=== PATIENT | female | born 1955 | race Caucasian/White ===

== ENCOUNTER 2017-09-07 20:17 | Emergency (ER) | payer BC ==
[~2017-09-07] VITALS: Ht 167.6 cm; Wt 110.0 kg
[~2017-09-07 20:17] MED LIST: NEORAL100 MG OR; NORCO1 TAB PO; TOPAMAX100 MG PO; TYLENOL 325MG TAB PO; XARELTO PO
[2017-09-07 22:08] LABS: HEMATOCRIT 36.9 % (37.0-47.0); HEMOGLOBIN 11.5 g/dl (12.0-16.0); IMMATURE GRANULOCYTES 0.7 % (0.0-1.0); MEAN CELL VOLUME 92.5 fL CALC (80.0-100.0); MEAN CORPUSCULAR HGB 28.8 pG CALC (26.0-32.0); MEAN CORPUSCULAR HGB CONC 31.2 g/L CALC (32.0-36.0); NEUT# 12.78 thou/uL (2.00-7.15); RED BLOOD COUNT 3.99 mill/uL (4.20-5.60); RED CELL DISTRI WIDTH 13.9 % (11.5-15.5)
[2017-09-07 22:24] LABS: ALBUMIN 3.7 g/dL (3.2-5.0); ALKALINE PHOSPHATASE 81 u/l (38-126); ANION GAP 16 (6-22 (CALC)); BILIRUBIN, TOTAL 0.7 mg/dL (0.0-1.4); BUN 21 mg/dL (8-23); BUN/CREATININE RATIO 18 (12-20 (CALC)); CALCIUM 8.9 mg/dL (8.4-10.2); CARBON DIOXIDE 23 mmol/l (22-30); CHLORIDE 107 mmol/l (95-108); CREATININE 1.2 mg/dL (0.5-1.0); GFR 46 ML/MIN (>=60 (CALC)); GFR FOR AFR.AMER. 55 ML/MIN (>=60 (CALC)); GLUCOSE 121 mg/dL (82-115); POTASSIUM 3.6 mmol/l (3.5-5.1); SGOT/AST 39 u/l (9-36); SGPT/ALT 24 u/l (11-66); SODIUM 142 mmol/l (137-146)
[2017-09-07 22:26] VITALS: BP 95/64
== END 2017-09-07 22:23 | DRG 534 ==
LOC: ED 20:17
PROVIDERS: Emergency Medicine
DX: S72.401A Unspecified fracture of lower end of right femur, initial encounter for closed fracture (principal); I10 Essential (primary) hypertension; M19.90 Unspecified osteoarthritis, unspecified site; Y92.009 Unspecified place in unspecified non-institutional (private) residence as the place of occurrence of the external cause; W18.30XA Fall on same level, unspecified, initial encounter; Z96.653 Presence of artificial knee joint, bilateral; Z96.643 Presence of artificial hip joint, bilateral
CPT/HCPCS: L1830

== ENCOUNTER 2019-11-15 05:29 | Emergency (ER) | payer BC ==
[~2019-11-15] VITALS: Ht 167.6 cm; Wt 108.6 kg
[2019-11-15 06:05] LABS: HEMATOCRIT 41.9 % (37.0-47.0); IMMATURE GRANULOCYTES 0.3 % (0.0-5.0); MEAN CELL VOLUME 94.4 fL CALC (80.0-100.0); MEAN CORPUSCULAR HGB 31.1 pG CALC (26.0-32.0); MEAN CORPUSCULAR HGB CONC 32.9 g/L CALC (32.0-36.0); NEUT# 8.94 thou/uL (2.00-7.15); RED BLOOD COUNT 4.44 mill/uL (4.20-5.60); RED CELL DISTRI WIDTH 13.1 % (11.5-15.5)
[2019-11-15] MEDS ORDERED: TOPAMAX50 MG PO (06:07)
[2019-11-15] MEDS ORDERED: PREDNISONE5 MG PO (06:08)
[2019-11-15] MEDS ORDERED: FAMOTIDINE20 M1 PO (06:16)
[2019-11-15] MEDS ORDERED: BUT/APAP/CA3 PO (06:17)
[2019-11-15 06:18] LABS: HEMOGLOBIN 13.8 g/dl (12.0-16.0)
[2019-11-15] MEDS ORDERED: SUMATRIPTAN25 MG PO (06:18)
[2019-11-15] MEDS ORDERED: ONDANSETRON HCL4 MG PO (06:19)
[2019-11-15] MEDS ORDERED: GABAPENTIN100 MG PO (06:20)
[2019-11-15] MEDS ORDERED: ASPIRIN325 MG PO (06:20)
[2019-11-15 06:21] LABS: BUN 14 mg/dL (8-23); BUN/CREATININE RATIO 19 (12-20 (CALC)); CHLORIDE 104 mmol/l (95-108); CREATININE 0.8 mg/dL (0.5-1.0); GFR > 60 ML/MIN (>=60 (CALC)); GFR FOR AFR.AMER. > 60 ML/MIN (>=60 (CALC)); POTASSIUM 3.8 mmol/l (3.5-5.1); SODIUM 135 mmol/l (137-146)
[2019-11-15] MEDS ORDERED: TALTZ80 MG/M1 IM (06:22)
[2019-11-15 06:23] LABS: ANION GAP 18 (6-22 (CALC)); CARBON DIOXIDE 17 mmol/l (22-30)
[2019-11-15] MEDS ORDERED: AZELASTINE HCL0.15 % (06:23)
[2019-11-15] MEDS ORDERED: NORVASC5 M1 PO (06:24)
[2019-11-15] MEDS ORDERED: CARVEDILOL6.25 MG PO (06:25)
[2019-11-15] MEDS ORDERED: LORAZEPAM0.5 MG PO (06:26)
[2019-11-15] MEDS ORDERED: TAM75CAP PO (06:54)
[2019-11-15 07:02] VITALS: BP 124/65
== END 2019-11-15 07:07 | disposition home or self-care (01) | DRG 153 ==
LOC: ED 05:29
PROVIDERS: Family Medicine
DX: J11.1 Influenza due to unidentified influenza virus with other respiratory manifestations (principal); G62.9 Polyneuropathy, unspecified; I10 Essential (primary) hypertension

== ENCOUNTER 2024-07-26 10:38 | Inpatient (IN) | payer MEDICARE ==
[2024-07-26] VITALS (16 sets, daily range): BP systolic 135–178; BP diastolic 81–99
[~2024-07-26] VITALS: Ht 167.6 cm; Wt 104.3 kg
[~2024-07-26 10:38] MED LIST changes: +AMBIEN10 MG PO; +ASPIRIN325 MG PO; +AZELASTINE HCL0.15 %; +BUT/APAP/CA3 PO; +CARVEDILOL6.25 MG PO; +FAMOTIDINE20 M1 PO; +GABAPENTIN100 MG PO; +LORAZEPAM0.5 MG PO; +NAPROXEN500 MG PO; +NORVASC5 M1 PO; +ONDANSETRON HCL4 MG PO; +PREDNISONE10 MG PO; +PREDNISONE5 MG PO; +SUMATRIPTAN25 MG PO; +TALTZ80 MG/M1 IM; +TAM75CAP PO; +TOPAMAX50 MG PO; +TREMFYA
[2024-07-26] MEDS ORDERED: ONDANSETRON HCl 4 MG/2 ML SDV IV ONE ×2 (10:45→13:40)
[2024-07-26 11:14] LABS: BASO% 0.3 % (0-3); EOS% 0.8 % (0-8); HEMOGLOBIN 13.9 g/dl (12.0-16.0); IMMATURE GRANULOCYTES 0.3 % (0.0-5.0); MEAN CELL VOLUME 95.3 fL CALC (80.0-100.0); MEAN CORPUSCULAR HGB 29.4 pG CALC (26.0-32.0); MEAN CORPUSCULAR HGB CONC 30.9 g/dL CAL (32.0-36.0); MONO% 10.3 % (2-13); NEUT# 12.98 thou/uL (2.00-7.15); NEUT% 82.3 % (42-76); RED BLOOD COUNT 4.72 mill/uL (4.20-5.60); RED CELL DISTRI WIDTH 13.2 % (11.5-15.5)
[2024-07-26 11:29] LABS: ALBUMIN 3.9 g/dL (3.2-5.0); BUN 11 mg/dL (8-23); BUN/CREATININE RATIO 16 (12-20 (CALC)); CHLORIDE 111 mmol/l (95-108); CREATININE 0.7 mg/dL (0.5-1.0); ESTIMATED GFR 94 ML/MIN (>=90 (CALC)); POTASSIUM 3.6 mmol/l (3.5-5.1); SODIUM 136 mmol/l (137-146); TOTAL PROTEIN 7.6 g/dL (6.3-8.2)
[2024-07-26 11:31] LABS: ALKALINE PHOSPHATASE 112 u/l (38-126); ANION GAP 10 (6-22 (CALC)); BILIRUBIN, TOTAL 0.8 mg/dL (0.02-1.3); CARBON DIOXIDE 19 mmol/l (22-30); SGOT/AST 100 u/l (9-36)
[2024-07-26] MEDS ORDERED: SODIUM CHLORIDE 0.9% 1,000 ML IV ONE (11:40)
[2024-07-26 12:19] LABS: URINE BLOOD DIPSTICK Small (NEGATIVE); URINE GLUCOSE - DIPSTICK Negative (NEGATIVE); URINE KETONE >=160 mg/dL (NEGATIVE); URINE LEUK ESTERASE Negative (NEGATIVE); URINE NITRITE - DIPSTICK Negative (Negative); URINE PH 7.5 (4.5-8.0); URINE PROTEIN - DIPSTICK 30 mg/dL (NEG-TRACE); URINE UROBILINOGEN - DIPSTICK 0.2 E.U./dL (0.2)
[2024-07-26] MEDS ORDERED: PROMETHAZINE HCL 25 MG/ML AMP IM ONE (12:20)
[2024-07-26 12:24] LABS: URINE COLOR Yellow
[2024-07-26 12:25] LABS: URINE EPITHELIAL CELLS FEW EPI/hpf (0-FEW); URINE MUCUS FEW hpf (NONE-FEW); URINE RBC 0-2 RBC/hpf (0-5)
[2024-07-26] MEDS ORDERED: METHOCARBAMOL 500 MG/TAB PO ONE (13:25)
[2024-07-26] MEDS ORDERED: Pantoprazole Sodium 40 MG VIAL (Protonix) IV ONE (13:40)
[2024-07-26] MEDS ORDERED: SODIUM CHLORIDE 0.9% 100 ML IV ONE (13:57)
[2024-07-26] MEDS ORDERED: SODIUM CHLORIDE 0.9% 1,000 ML IV PRN (14:55)
[2024-07-26] MEDS ORDERED: MAGNESIUM HYDROXIDE 30 ML UDC PO PRN (14:55)
[2024-07-26] MEDS ORDERED: ACETAMINOPHEN 325 MG/TAB PO PRN (14:55)
[2024-07-26] MEDS ORDERED: ONDANSETRON HCl 4 MG/2 ML SDV IV PRN (15:00)
[2024-07-26] MEDS ORDERED: PROMETHAZINE HCL 25 MG/ML AMP IV PRN (15:00)
[2024-07-26] MEDS ORDERED: GABAPENTIN400 M2 PO (15:05)
[2024-07-26] MEDS ORDERED: TRAZODONE HYDR150 MG PO (15:08)
[2024-07-26] MEDS ORDERED: CYANOCOBAL1000 MCG/M IM (15:10)
[2024-07-26] MEDS ORDERED: PROMETHAZINE HCL 25 MG in SODIUM CHLORIDE 0.9% 50 ML IV PRN (15:40)
[2024-07-26] MEDS ORDERED: hydrALAZINE HCL 20 MG/ML VIAL(1 ML) IV PRN (16:05)
[2024-07-26] MEDS ORDERED: CYCLOBENZAPRINE HCL 5 MG TAB PO PRN (16:05)
[2024-07-26] MEDS ORDERED: HYDROmorphone HCL 2 MG/AMP IV PRN (16:20)
[2024-07-26] MEDS ORDERED: CARVEDILOL 6.25 MG/TAB PO SCH (21:00)
[2024-07-27] VITALS (9 sets, daily range): BP systolic 142–196; BP diastolic 72–93
[2024-07-27 05:45] LABS: BASO% 0.3 % (0-3); EOS% 0.7 % (0-8); HEMOGLOBIN 12.2 g/dl (12.0-16.0); IMMATURE GRANULOCYTES 0.2 % (0.0-5.0); LYMPH% 6.8 % (15-41); MEAN CORPUSCULAR HGB 29.6 pG CALC (26.0-32.0); MEAN CORPUSCULAR HGB CONC 32.2 g/dL CAL (32.0-36.0); MONO% 10.7 % (2-13); NEUT# 12.28 thou/uL (2.00-7.15); NEUT% 81.3 % (42-76); RED BLOOD COUNT 4.12 mill/uL (4.20-5.60); RED CELL DISTRI WIDTH 13.2 % (11.5-15.5)
[2024-07-27 05:54] LABS: HEMATOCRIT 37.9 % (37.0-47.0)
[2024-07-27 06:04] LABS: ALBUMIN 3.2 g/dL (3.2-5.0); BILIRUBIN, TOTAL 0.7 mg/dL (0.02-1.3); CREATININE 0.6 mg/dL (0.5-1.0); MAGNESIUM 1.9 mg/dL (1.6-2.3); POTASSIUM 3.6 mmol/l (3.5-5.1); TOTAL PROTEIN 6.3 g/dL (6.3-8.2)
[2024-07-27] MEDS ORDERED: AZITHROMYCIN 500 MG in SODIUM CHLORIDE 0.9% 250 ML IV SCH (10:30)
[2024-07-27] MEDS ORDERED: Pantoprazole Sodium 40 MG VIAL (Protonix) IV SCH (12:00)
[2024-07-27] MEDS ORDERED: VANCOMYCIN HCL 1,250 MG in SODIUM CHLORIDE 0.9% 225 ML IV SCH (12:30)
[2024-07-27] MEDS ORDERED: CEFEPIME HYDROCHLORIDE 2 GM in SODIUM CHLORIDE 0.9% 100 ML IV SCH (14:00)
[2024-07-28 01:00] VITALS: BP 136/72
[2024-07-28 04:13] VITALS: BP 149/86
[2024-07-28 05:40] LABS: BASO% 0.4 % (0-3); EOS% 1.8 % (0-8); HEMATOCRIT 37.2 % (37.0-47.0); HEMOGLOBIN 11.8 g/dl (12.0-16.0); IMMATURE GRANULOCYTES 0.5 % (0.0-5.0); LYMPH% 9.1 % (15-41); MEAN CELL VOLUME 92.3 fL CALC (80.0-100.0); MEAN CORPUSCULAR HGB 29.3 pG CALC (26.0-32.0); MEAN CORPUSCULAR HGB CONC 31.7 g/dL CAL (32.0-36.0); MONO% 13.2 % (2-13); NEUT# 9.62 thou/uL (2.00-7.15); RED BLOOD COUNT 4.03 mill/uL (4.20-5.60); RED CELL DISTRI WIDTH 13.1 % (11.5-15.5)
[2024-07-28 05:54] LABS: ALBUMIN 2.9 g/dL (3.2-5.0); BILIRUBIN, TOTAL 0.7 mg/dL (0.02-1.3); CREATININE 0.6 mg/dL (0.5-1.0); POTASSIUM 3.4 mmol/l (3.5-5.1)
[2024-07-28 06:04] LABS: C-REACTIVE PROTEIN 16.9 mg/dL (0-0.9)
[2024-07-28 07:02] VITALS: BP 153/79
[2024-07-28] MEDS ORDERED: PANTOPRAZOLE SODIUM Sesquihydr 40 MG/TAB PO SCH (09:00)
[2024-07-28 10:59] VITALS: BP 125/72
[2024-07-28] MEDS ORDERED: HYDROcodone 7.5 MG/Acetaminophen 325 MG/COMBO PO PRN (11:00)
[2024-07-28] MEDS ORDERED: POTASSIUM CHLORIDE 20 MEQ/PKT POWDER PO SCH (11:30)
[2024-07-28 15:00] VITALS: BP 163/86
[2024-07-28 19:18] VITALS: BP 137/77
[2024-07-29] VITALS (8 sets, daily range): BP systolic 116–163; BP diastolic 70–93
[2024-07-29 06:03] LABS: BASO% 0.5 % (0-3); EOS% 4.8 % (0-8); HEMATOCRIT 35.6 % (37.0-47.0); HEMOGLOBIN 11.4 g/dl (12.0-16.0); IMMATURE GRANULOCYTES 0.3 % (0.0-5.0); LYMPH% 10.4 % (15-41); MEAN CORPUSCULAR HGB 29.5 pG CALC (26.0-32.0); MONO% 15.7 % (2-13); NEUT# 6.25 thou/uL (2.00-7.15); NEUT% 68.3 % (42-76); RED BLOOD COUNT 3.87 mill/uL (4.20-5.60); RED CELL DISTRI WIDTH 13.2 % (11.5-15.5)
[2024-07-29 06:16] LABS: ALBUMIN 2.8 g/dL (3.2-5.0); BILIRUBIN, TOTAL 0.5 mg/dL (0.02-1.3); CREATININE 0.6 mg/dL (0.5-1.0); MAGNESIUM 2.1 mg/dL (1.6-2.3); POTASSIUM 3.5 mmol/l (3.5-5.1); TOTAL PROTEIN 5.7 g/dL (6.3-8.2)
[2024-07-29] MEDS ORDERED: POTASSIUM CHLORIDE 20 MEQ/TAB PO SCH (08:30)
[2024-07-29] MEDS ORDERED: CARVEDILOL 25 MG/TAB PO SCH (08:30)
[2024-07-29] MEDS ORDERED: POTASSIUM CHLORIDE 20 MEQ/PKT POWDER PO SCH (09:00)
[2024-07-29] MEDS ORDERED: METOPROLOL TARTRATE 5 MG/5 ML VIAL IV SCH (09:30)
[2024-07-29] MEDS ORDERED: VANCOMYCIN HCL 1,500 MG in SODIUM CHLORIDE 0.9% 470 ML IV SCH (12:30)
[2024-07-30] VITALS: BP 134/90
[2024-07-30 04:00] VITALS: BP 153/84
[2024-07-30 05:26] LABS: BASO% 0.7 % (0-3); EOS% 4.8 % (0-8); HEMATOCRIT 37.9 % (37.0-47.0); HEMOGLOBIN 12.1 g/dl (12.0-16.0); IMMATURE GRANULOCYTES 0.2 % (0.0-5.0); LYMPH% 11.8 % (15-41); MEAN CELL VOLUME 91.1 fL CALC (80.0-100.0); MEAN CORPUSCULAR HGB 29.1 pG CALC (26.0-32.0); MEAN CORPUSCULAR HGB CONC 31.9 g/dL CAL (32.0-36.0); MONO% 14.2 % (2-13); NEUT# 6.39 thou/uL (2.00-7.15); NEUT% 68.3 % (42-76); RED BLOOD COUNT 4.16 mill/uL (4.20-5.60)
[2024-07-30 05:44] LABS: ALBUMIN 2.9 g/dL (3.2-5.0); BILIRUBIN, TOTAL 0.4 mg/dL (0.02-1.3); CREATININE 0.5 mg/dL (0.5-1.0); MAGNESIUM 2.1 mg/dL (1.6-2.3); POTASSIUM 3.7 mmol/l (3.5-5.1)
[2024-07-30 07:48] VITALS: BP 168/103
[2024-07-30 10:55] VITALS: BP 147/88
[2024-07-30 16:07] VITALS: BP 152/83
[2024-07-30 19:43] VITALS: BP 160/91
[2024-07-30] MEDS ORDERED: CARVEDILOL 25 MG/TAB PO SCH (21:00)
[2024-07-31] VITALS: BP 127/83
[2024-07-31 04:00] VITALS: BP 129/81
[2024-07-31 05:28] LABS: BASO% 0.7 % (0-3); EOS% 5.7 % (0-8); HEMATOCRIT 37.2 % (37.0-47.0); IMMATURE GRANULOCYTES 0.6 % (0.0-5.0); LYMPH% 14.5 % (15-41); MEAN CORPUSCULAR HGB 29.3 pG CALC (26.0-32.0); MEAN CORPUSCULAR HGB CONC 32.3 g/dL CAL (32.0-36.0); MONO% 13.8 % (2-13); NEUT# 6.13 thou/uL (2.00-7.15); NEUT% 64.7 % (42-76); RED BLOOD COUNT 4.09 mill/uL (4.20-5.60)
[2024-07-31 05:29] LABS: ALBUMIN 2.9 g/dL (3.2-5.0); BILIRUBIN, TOTAL 0.4 mg/dL (0.02-1.3); CREATININE 0.6 mg/dL (0.5-1.0); POTASSIUM 3.4 mmol/l (3.5-5.1); TOTAL PROTEIN 5.9 g/dL (6.3-8.2)
[2024-07-31 07:13] VITALS: BP 159/79
[2024-07-31 09:25] VITALS: BP 116/85
[2024-07-31 10:53] VITALS: BP 135/81
[2024-07-31] MEDS ORDERED: METHOCARBAMOL 500 MG/TAB PO PRN (11:15)
[2024-07-31] MEDS ORDERED: HYDROCO/APAP1 TA9 PO (12:04)
== END 2024-07-31 14:33 | disposition home health service (06) | DRG 379 ==
LOC: ED 10:38 → ED-I 12:50 → ED 12:50 → MS2 14:40
PROVIDERS: Family Medicine; Nurse Practitioner Family; Student in an Organized Health Care Education/Training Program; ADMIT Internal Medicine; ATTEND Internal Medicine
DX: K92.0 Hematemesis (principal); D72.829 Elevated white blood cell count, unspecified; R93.7 Abnormal findings on diagnostic imaging of other parts of musculoskeletal system; M62.830 Muscle spasm of back; M62.838 Other muscle spasm; I10 Essential (primary) hypertension; G62.9 Polyneuropathy, unspecified; Z87.11 Personal history of peptic ulcer disease; Z98.890 Other specified postprocedural states
CPT/HCPCS: J0692; J2470; J3370; Q9967